=== PATIENT | male | born 1985 | race Hispanic/Latino ===

== ENCOUNTER 2016-09-14 00:10 | Emergency (ER) | payer OTHER ==
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
[2016-09-14 02:29] VITALS: BP 121/67; PULSE 74; RESP 16; O2SAT 97
--- NOTE | 2016-09-14 02:48 | CP.PCM.PN ---
Subjective - Date & Time of Evaluation Date of Evaluation: 09/14/16 Time of Evaluation: 02:10 - Subjective Subjective: Suture Procedure Note Procedure- Suture Resident- Domingo Davenport PGY1 Niyah GARCIA 3 Pt was positioned appropriately, 3cc lidocain without epinephrine was used as a local anesthetic. 40cc NaCl and Iodine was used for irrigation. Pt was sterile draped with wound exposed. 6.0 Prolene suture were placed with good approximation. 4 stitches simple interrupted was placed. Procedure was tolerated without complications. wound dressed with bacitracin. Pt to follow-up and remove sutures in 5-10 days Objective - Vital Signs/Intake and Output Vital Signs (last 24 hours): Temp Pulse Resp BP Pulse Ox 74 16 121/67 97 09/14/16 02:28 09/14/16 02:28 09/14/16 02:28 09/14/16 02:28
[2016-09-14] MEDS ORDERED: TDAP Vaccine 0.5 mL Syr IM ONE (03:25)
== END 2016-09-14 03:39 | disposition home or self-care (01) ==
LOC: EDSEX → ED 00:10
DX: S01.81XA Laceration without foreign body of other part of head, initial encounter (principal); Y08.89XA Assault by other specified means, initial encounter; Y93.89 Activity, other specified; Y92.89 Other specified places as the place of occurrence of the external cause